=== PATIENT | male | born 1990 | race Caucasian/White ===

== ENCOUNTER 2019-10-19 10:01 | Emergency (ER) | payer SELFPAY ==
[~2019-10-19] VITALS: Ht 193 cm; Wt 100.0 kg
[2019-10-19] MEDS ORDERED: OXYCODONE HCL/ACETAMINOPHEN 5/325MG TABLET PO ONE (11:00)
[2019-10-19 12:32] VITALS: BP 128/78
== END 2019-10-19 12:33 | disposition home or self-care (01) ==
LOC: ER 11:08
DX: S43.102A Unspecified dislocation of left acromioclavicular joint, initial encounter (principal); V00.131A Fall from skateboard, initial encounter; Y93.89 Activity, other specified; Y92.480 Sidewalk as the place of occurrence of the external cause
CPT/HCPCS: 73030; 99283